=== PATIENT | female | born 1945 | race African-American/Black ===

== ENCOUNTER 2017-02-06 10:37 | Outpatient (CLI) | payer MEDICARE, OTHER ==
[~2017-02-06] VITALS: Ht 172.7 cm; Wt 69.5 kg
--- NOTE | ~2017-02-06 | HEMODYNAMI ---
PATIENT:JANAY TREVINO MEDICAL RECORD: [id number] : 49 LOCATION:[facility] ADMISSION DATE: 02/06/17 Generatedon:02/06/201713:50 Patient name: JANAY TREVINO Patient #: [id number] SSN: : 1945 Date of study: 02/06/2017 Page: Of Hemodynamic Procedure Report Patient Data Patient Demographics Procedure consent was obtained First Name: JANAY Gender: Female Last Name: BELINDA : 1945 Middle Initial: BHAVIK Age: 71 year(s) Patient #: [id number] Race: Black Additional ID: [id number] Contact details Address: [address] [place] [address] [place] State: [place] City: [facility] Zip code: [address] Past Medical History Allergies Allergen Reaction Date Comments Reported Other allergy 02/06/2017 Sulfa, Niacin Admission Admission Data Admission Date: 02/06/2017 Admission Time: 10:37 Admit Source: Other Lab Results Lab Result Date: 02/06/2017 Lab Result Time: 12:00 Biochemistry Name Units Result Min Max BUN mg/dl 46 --(----)-* 7 18 Creatinine mg/dl 2 --(----)-* 0.6 1.3 Glucose mg/dl 100 --(---*)-- 74 106 Potassium mmol/l 135 --(----)-* 3.5 5.1 CBC Name Units Result Min Max Hemoglobin g/dl 11.2 *-(----)-- 13.5 17.5 WBC 10^3/l 6.9 --(-*--)-- 4.8 10.8 Procedure Procedure Types Cath Procedure Diagnostic Procedure Cardioversion Procedure Description Procedure Date Procedure Date: 02/06/2017 Procedure Start Time: 13:38 Procedure End Time: 13:45 Procedure Staff Name Function Koby Wellington MD Performing Physician Ash Muñoz RN Nurse Cheri Osullivan RT Monitor Procedure Data Cath Procedure Estimated blood loss: 0 ml Procedure Complications No complications Procedure Medications Medication Administration Route Dosage Oxygen NC 6 l/min Refer to Anesthesia Notes for Sedation Medications Hemodynamics Rest HGB: 11.2 (g/dl) Pre Cath Intra NCS Post Cath Vital Signs Time Heart Resp SPO2 etCO2 XV2vdsl Respiration NIBP Rhythm Pain Sedation Rate (ipm) (%) (mmHg) (mmHg) (CO2) (ipm) (mmHg) Status Level (bpm) 13:26:31 84 16 99 0 0 14 106/71(87) A-Fib 0 (11 ) 10(A) , No pain 13:30:39 86 14 99 0 0 15 112/72(94) A-Fib 0 (11 ) 10(A) , No pain 13:34:51 88 21 99 18.6 5.2 16 107/66(76) A-Fib 0 (11 ) 10(A) , No pain 13:38:57 80 20 100 32.1 6.7 16 108/75(90) A-Fib 0 (11 ) 8(A) , No pain 13:43:04 62 13 100 16.4 3.7 21 98/61(79) NSR 0 (11 ) 9(A) , No pain 13:49:11 63 15 100 16.4 2.2 16 85/56(70) NSR 0 (11 ) 10(A) , No pain Medications Time Medication Route Dose Verified Delivered Reason Notes Effectiven ess by by 13:23:06 Oxygen NC 6 Ash Aleman used for l/min Toni Muñoz deposition reporter RN 13:23:20 Refer to Ash Aleman for Anesthesia Toni Muñoz RN sedation Notes for RN Sedation Medications Procedure Log Time Note 12:14:03 Informed consent obtained and on chart 12:14:07 Admit Source: Other 12:14:30 Time tracking: Regular hours 12:14:34 Plan of Care:Hemodynamics will remain stable., Cardiac rhythm will remain stable., Comfort level will be maintained., Respiratory function will remain adequate., Patient/ family verbilizes understanding of procedure., Procedure tolerated without complication., Recovers from procedure without complications.. 12:48:52 Lab Result : Creatinine 2 mg/dl 12:48:52 Lab Result : Hemoglobin 11.2 g/dl 12:48:52 Lab Result : BUN 46 mg/dl 12:48:52 Lab Result : Glucose 100 mg/dl 12:48:52 Lab Result : Potassium 135 mmol/l 12:48:52 Lab Result : WBC 6.9 10^3/l 12:49:19 Diagnostic Cath Status : Elective 12:50:13 Quick Combo opened to sterile field. 13:00:40 Ash Muñoz RN sent for patient. Start room use. 13:17:12 Patient received from Outpatients to CCL 1 Alert and oriented. Tansferred to table in Supine position. 13:17:14 Warm blankets applied, and layo hugger turned on for patient comfort. 13:17:15 Correct patient and procedure confirmed by team. 13:17:17 ECG and BP/O2 sat monitors applied to patient. 13:18:00 H&P Date Dictated: 01/24/2017 Within 30 days and on chart., H&P Addendum completed by physician on day of procedure. (MUST COMPLETE FOR ALL OUTPATIENTS). 13:18:02 Pre-procedure instructions explained to patient. 13:18:09 Family in waiting room. 13:18:13 Patient NPO since Midnight. 13:19:13 Patient allergic to Other allergySulfa, Niacin 13:19:24 Is the patient allergic to Iodine/contrast media? No. 13:19:25 Is patient on blood thinner?No 13:19:29 Patient diabetic? No. 13:19:34 Snore? Yes 13:19:37 Sleep apnea? No 13:19:43 Dentures? Yes tight 13:20:21 Is patient on blood thinner?Yes 13:20:45 ACC The patient was administered the following blood thiners within the last 24 hours: Unknown 13:21:40 servaysa blood thinner 13:22:08 IV patent on arrival in left antecubital with 0.9% NaCl at [facility]. 13:22:22 Alarms reviewed by Elfego Adams 13:22:24 Physician paged 13:23:06 Oxygen 6 l/min NC was administered by Ash Muñoz RN; used for procedure; 13:23:20 Refer to Anesthesia Notes for Sedation Medications was administered by Ash Muñoz RN; for sedation; 13:25:27 Vital chart was started 13:26:25 Physician arrived 13:31:00 --------ALL STOP TIME OUT------ 13:31:01 Final Timeout: patient, procedure, and site verified with staff and physician. All members of the team are in agreement. 13:31:17 Sedation plan: TIVA Propofol 13:35:32 MAGAN HEWITT present and monitoring patient for TIVA. 13:38:59 Procedure started. 13:38:59 Full Disclosure recording started 13:39:42 Quick combo pads placed on patients chest and back. 13:42:17 Defibrillator synced and charged to 200 Joules. 13:42:23 Shock delivered. 13:42:50 Patient cardioverted to sinus rhythm . 13:43:28 Procedure ended.(Physican Out) 13:44:45 Post procedure rhythm: sinus rhythm 13:44:49 Estimated blood loss: 0 ml 13:44:52 Post procedure instruction explained to patient.Patient verbalizes understanding. 13:45:04 Procedure and supply charges have been captured, reviewed, submitted and are correct. 13:45:27 Procedure Complication : No complications 13:45:31 Vital chart was stopped 13:45:41 See physician's report for complete and final results. 13:45:44 Report given to Pre/Post Procedure Room. 13:45:48 Patient transfered to Pre/Post Procedure Room with Stretcher. 13:45:51 Procedure ended. 13:45:51 Full Disclosure recording stopped 13:45:53 End room use (Document Last) Device Usage Item Manufacture Quantity Catalog Hospital Part Current Minimal Lot# / Name Number Charge Number Stock Stock Giovanny ne# Code Stylyt 1 [id number] Combo Signature Audit Shelbiana Stage Time Signature Unsigned Intra-Procedure 02/06/2017 Cheri Osullivan 1:50:24 PM RT(R) Signatures Monitor : Cheri Osullivan Signature : RT Date : Time : [facility] [address] [place] [address]
--- NOTE | ~2017-02-06 | OP ---
PATIENT NAME: JANAY TREVINO MEDICAL RECORD: [id number] :49 LOCATION:[facility] ADMISSION DATE: SURGEON: YOBANY POPE MD DATE OF OPERATION: 02/06/2017 Cardioversion Note DESCRIPTION OF PROCEDURE: After general sedation via anesthesia via TIVA, IV Diprivan, a single synchronized shock successful in restoring atrial fibrillation to normal sinus rhythm. IMPRESSION: Successful cardioversion on Janay Trevino. COMPLICATIONS: None. TRANSINT:[id number] Voice Confirmation ID: [id number] DOCUMENT ID: [id number] YOBANY POPE MD CC: [id number] DICTATION DATE: 02/06/17 1348 NEUROLOGY PHYSICIAN: 02/06/17 2249 DEP CLI 02/06/17 [place] [id number]
[2017-02-06] MEDS ORDERED: ANASTROZOLE1 MG PO (11:10)
[2017-02-06] MEDS ORDERED: PACERONE200 MG PO (11:11)
[2017-02-06] MEDS ORDERED: LIPITOR10 MG PO (11:12)
[2017-02-06] MEDS ORDERED: LASIX20 MG PO (11:13)
[2017-02-06] MEDS ORDERED: COREG12.5 MG PO (11:13)
[2017-02-06] MEDS ORDERED: COZAAR100 MG PO (11:14)
[2017-02-06] MEDS ORDERED: ALDACTONE25 MG PO (11:15)
[2017-02-06] MEDS ORDERED: ASPIRIN81 MG PO (11:16)
[2017-02-06] MEDS ORDERED: SAVAYSA PO (11:17)
[2017-02-06 11:27] VITALS: BP 100/58; Ht 172.7 cm; Wt 69.5 kg
[2017-02-06 12:02] LABS: BASOPHILS 0.7 % (0-2); EOSINOPHILS 4.2 % (0-7); HEMATOCRIT 33.7 % (36.0-48.0); HEMOGLOBIN 11.2 g/dL (12-16); IMMATURE GRANULOCYTES 0.3 % (0-5); LYMPHOCYTES 13.5 % (15-50); MCH 27.8 pg (26.0-34.0); MCHC 33.2 g/dL (31.0-37.0); MCV 83.6 fL (80.0-100.0); MEAN PLATELET VOLUME 10.4 fL (7.4-10.4); MONOCYTES 15.1 % (2-11); NEUTROPHILS 66.2 % (40-80); PLATELET COUNT 380 10x3/uL (130-400); RBC 4.03 10x6/uL (4.00-5.40); RDW 14.8 % (11.5-14.5); WBC 6.9 10x3/uL (4.8-10.8)
[2017-02-06 12:11] LABS: ANION GAP 13.7 mmol/L (8-16); CALCIUM 9.5 mg/dL (8.5-10.1); CARBON DIOXIDE 27.6 mmol/L (21.0-32.0); INR 4.19 (0.85-1.17); POTASSIUM - SERUM 4.3 mmol/L (3.5-5.1)
--- NOTE | 2017-02-06 14:00 | NUR ---
1400 RECEIVED PT TO CATH RECOVERY, PT IS DROWSY, DENIES ANY C/O. VSS, IV PATENT. SINUS RHYTHM WITH RATE OF OF 63. PO FLUIDS SERVED.
--- NOTE | 2017-02-06 14:15 | NUR ---
1415 PT LATA PO FLUIDS WITH NO C/O. SANDWICH SERVED. BROTHER AT BEDSIDE.
== END 2017-02-06 15:15 | disposition home or self-care (01) ==
LOC: D.CATH 10:37
PROVIDERS: Internal Medicine Interventional Cardiology
DX: I48.91 Unspecified atrial fibrillation (principal); Z01.812 Encounter for preprocedural laboratory examination